=== PATIENT | female | born 1990 | race Caucasian/White ===

== ENCOUNTER 2018-08-29 13:09 | Day surgery (SDC) | payer BC ==
[~2018-08-29] VITALS: Ht 162.6 cm; Wt 64.8 kg
[~2018-08-29 13:09] MED LIST: PROPOFOL 200 MG INJ ONE
[2018-08-29 13:53] VITALS: Ht 162.6 cm; Wt 64.8 kg
[2018-08-29] MEDS ORDERED: BIRTH CONTROL (13:58)
[2018-08-29 14:02] VITALS: BP 102/63; PULSE 76; RESP 18
[2018-08-29] MEDS ORDERED: EPHEDrine SULFATE 50 MG/5 ML SYG IV PRN (14:30)
[2018-08-29] MEDS ORDERED: hydrALAzine 20 MG INJ IV PRN (14:30)
[2018-08-29] MEDS ORDERED: LABETALOL HCL 20MG INJ IV PRN (14:30)
[2018-08-29] MEDS ORDERED: MIDAZOLAM 1 MG/ML 2 ML INJ IV PRN (14:30)
[2018-08-29] MEDS ORDERED: IPRATROPIUM (NEB) 0.5 MG/2.5 ML AMP HHN PRN (14:30)
[2018-08-29] MEDS ORDERED: MEPERIDINE 25 MG INJ IV PRN (14:30)
[2018-08-29] MEDS ORDERED: OXYCODONE/ACETAMINOPHEN (5/325) TAB PO PRN ×2 (14:30)
[2018-08-29] MEDS ORDERED: ONDANSETRON 4 MG INJ IV PRN (14:30)
[2018-08-29] MEDS ORDERED: DIPHENHYDRAMINE 50 MG INJ IV PRN (14:30)
[2018-08-29] MEDS ORDERED: ALBUTEROL 0.083% (NEB) 2.5 MG/3 ML AMP HHN PRN (14:30)
[2018-08-29] MEDS ORDERED: FENTAnyl 50 MCG/ML VIAL IV PRN ×3 (14:30)
[2018-08-29] MEDS ORDERED: TRIMETHOBENZAMIDE 100 MG/ML VIAL IM PRN (14:30)
[2018-08-29] MEDS ORDERED: HYDROmorphONE 1 MG/5 ML IV SYRINGE IV PRN ×3 (14:30)
--- NOTE | 2018-08-29 14:30 | PREAC ---
Date/Time of Note Date/Time of Note DATE: 08/29/18 TIME: 14:30 Anesthesia Eval and Record Evaluation Time Pre-Procedure Interview DATE: 08/29/18 TIME: 14:30 Age 28 Sex female NPO: 8 hrs Preoperative diagnosis ABDOMINAL PAIN Planned procedure EGD WITH BIOPSIES Past Medical History Past Medical History: None Surgery & Anesthesia Issues No known issue Meds Anticoagulation: No Beta Brandon within 24 hr: No Reason Beta Brandon not given: Pt. not on B-Brandon Reported Medications [ Control] No Conflict Check 08/29/18 Meds reviewed: Yes Allergies Coded Allergies: No Known Allergy (Unverified , 08/29/18) Allergies Reviewed: Yes Labs/Studies Labs Reviewed: Reviewed by anesthesiologist test: Negative Pre-procedure Exam Last vitals Vital Signs Date Temp Pulse Resp B/P (MAP) Pulse Ox O2 O2 Flow FiO2 Time Delivery Rate 08/29/18 98.0 76 18 102/63 100 Room Air 14:02 (76) Airway: Adequate mouth opening, Adequate thyromental dist Mallampati: Mallampati II Teeth: Normal Lung: Normal Heart: Normal ASA Physical Status ASA physical status: 1 Emergency: None Planned Anesthetic General/MAC: MAC Planned Pain Management Parenteral pain med Pre-operative Attestations Prior to commencing anesthesia and surgery, the patient was re-evaluated, there was verification of: *The patient's identity *The results of appropriate recent lab work and preoperative vital signs *The above evaluation not changing prior to induction *Anesthetic plan, risk benefits, alternative and complications discussed with patient/family; questions answered; patient/family understands, accepts and wishes to proceed. Manav Walker M.D. August 29, 2018 14:30
[2018-08-29] MEDS ORDERED: FENTAnyl 50 MCG/ML VIAL ONE (14:31)
[2018-08-29] MEDS ORDERED: PROPOFOL 40 ML ONE (14:31)
[2018-08-29] MEDS ORDERED: LIDOCAINE 100 MG SYRINGE ONE (14:31)
[2018-08-29 14:40] VITALS: BP 96/60; PULSE 74; RESP 19
--- NOTE | 2018-08-29 14:42 | PAC ---
Date/Time of Note Date/Time of Note DATE: 08/29/18 TIME: 14:42 Post-Anesthesia Notes Post-Anesthesia Note Last documented vital signs Vital Signs Date Temp Pulse Resp B/P (MAP) Pulse Ox O2 O2 Flow FiO2 Time Delivery Rate 08/29/18 98.0 76 18 102/63 100 Room Air 14:02 (76) Activity: WNL Respiratory function: WNL Cardiovascular function: WNL Mental status: Baseline Pain reasonably controlled: Yes Hydration appropriate: Yes Nausea/Vomiting absent: Yes Manav Walker M.D. August 29, 2018 14:42
[2018-08-29 15:08] VITALS: BP 97/63; PULSE 74; RESP 20
== END 2018-08-29 15:54 | disposition home or self-care (01) ==
LOC: GIL 13:09
PROVIDERS: ATTEND Internal Medicine Gastroenterology
DX: K29.30 Chronic superficial gastritis without bleeding (principal)
CPT/HCPCS: 43239; 84703; 88305; 88312; J2001; J3010; Z7610